=== PATIENT | male | born 1985 | race Caucasian/White ===

== ENCOUNTER 2018-01-28 15:41 | Emergency (ER) | payer BC ==
[2018-01-28 16:44] LABS: Urine Blood NEGATIVE (NEG); Urine Glucose NEGATIVE (NEG); Urine Protein NEGATIVE (NEG)
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
[2018-01-28] MEDS ORDERED: HYDROCODONE/APAP 10/325 TAB ONE (17:13)
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
[2018-01-28] MEDS ORDERED: NA CHLORIDE 0.9% 1,000 ML ONE (17:39)
[2018-01-28] MEDS ORDERED: MORPHINE 4 MG/ML SYR ONE (18:35)
[2018-01-28 19:01] VITALS: TEMP 98.7
[2018-01-28 19:03] VITALS: BP 157/103; O2SAT 99
== END 2018-01-28 18:41 | disposition short-term general hospital (02) ==
LOC: ER 15:41
DX: S32.019A Unspecified fracture of first lumbar vertebra, initial encounter for closed fracture (principal); V47.5XXA Car driver injured in collision with fixed or stationary object in traffic accident, initial encounter
CPT/HCPCS: 74176; 81003; 96361; 96374; 99285; J7030